=== PATIENT | female | born 1930 | race Caucasian/White ===

== ENCOUNTER 2019-07-12 22:54 | Inpatient (IN) | payer OTHER ==
[~2019-07-12] VITALS: Ht 162.6 cm; Wt 103.0 kg
--- NOTE | 2019-07-12 23:04 | NUR ---
PT BIBA TO ED WITH C/C OF RIGHT HAND PAIN. PER PT, RIGHT HAND BEGAN TO SWELL ON MONDAY, BUT PAIN AND SWELLING GREW WORSE TODAY. RIGHT HAND REDNESS AND SWELLING NOTED, WARM TO TOUCH. PT DENIES INJURY TO THE AFFECTED AREA. PT DENIES FEVER, CHILLS, N/V/D/C. PMSC INTACT TO AFFECTED EXTREMITY. PT IS AWAKE, AAOX4, RESP E/U, NAD NOTED. MSE COMPLETED BY DR. GAITAN. CALL LIGHT IN REACH.
[2019-07-12 23:47] LABS: BASOPHIL % 0.1 % (0-2)
[2019-07-12 23:50] LABS: PLATELET COUNT 408 x10^3mcL (130-400)
[2019-07-13 00:12] LABS: ALKALINE PHOSPHATASE 164 U/L (46-116); ALT/SGPT 21 U/L (14-59); AST/SGOT 21 U/L (15-37); CALCIUM 8.8 mg/dL (8.5-10.1); CARBON DIOXIDE 33.6 mmol/L (21-32); CHLORIDE SERUM 88 mmol/L (98-107); CREATININE SERUM 1.1 mg/dL (0.6-1.0); GLUCOSE SERUM 120 mg/dL (74-106); SODIUM SERUM 130 mmol/L (136-145); TOTAL PROTEIN, SERUM 7.1 g/dL (6.4-8.2)
--- NOTE | 2019-07-13 00:13 | NUR ---
PT IS LAYING IN GURNEY, AWAKE, AAOX4, RESP E/U, NAD NOTED. PT IS SPEAKING IN FULL CLEAR SENTENCES. CALL LIGHT IN REACH.
[2019-07-13 00:14] LABS: ALBUMIN 2.4 g/dL (3.4-5.0); POTASSIUM SERUM 2.3 mmol/L (3.5-5.1)
[2019-07-13] MEDS ORDERED: COR3 PO (01:01)
[2019-07-13] MEDS ORDERED: METFORMIN HYDR500 M1 PO (01:02)
[2019-07-13] MEDS ORDERED: KLOR-CON M1010 MEQ (01:03)
[2019-07-13] MEDS ORDERED: ZOLOFT25 MG PO (01:03)
[2019-07-13] MEDS ORDERED: MILLIPRED DP5 M1 PO (01:04)
[2019-07-13] MEDS ORDERED: COUMADIN3 MG PO (01:04)
[2019-07-13] MEDS ORDERED: COUMADIN3 MG (01:04)
[2019-07-13] MEDS ORDERED: SYNTHROID0.15 MG PO (01:05)
--- NOTE | 2019-07-13 01:24 | NUR ---
PT MEDICATED PER MD ORDER. PT VERBALIZED UNDERSTANDING OF MEDICATION PRIOR TO ADMINISTRATION. PT ON FULL SYSTEMS INTEGRATION ENGINEER. CALL LIGHT IN REACH. NAD NOTED.
--- NOTE | 2019-07-13 01:43 | NUR ---
REPORT CALLED TO DILIP CARRILLO TO ASSUME CARE OF PT.
[2019-07-13 02:30] LABS: microscopic required? YES; urine erythrocyte 1+ (NEGATIVE)
--- NOTE | 2019-07-13 02:45 | NUR ---
RECEIVED PT FROM ED VIA KATHRYN ACCOMPANIED BY RN. PT AA&O X4. NO SOB ON ROOM AIR. NO C/O PAIN. NO DISTRESS NOTED. IV TO RAC, INTACT. SAFETY MEASURES IN PLACE. BED IN LOWEST POSITION. SIDE RAILS UP X2. DEMONSTRATED HOW TO USE THE CALL LIGHT. CALL LIGHT WITHIN REACH.
[2019-07-13 03:06] LABS: AMPHETAMINE QUAL UR NONE DETECTED (See below)
[2019-07-13 04:38] VITALS: BP 120/68
[2019-07-13 05:34] VITALS: BP 117/66
--- NOTE | 2019-07-13 07:00 | NUR ---
PT RESTED AT INTERVALS. PT HAS EPISODES OF CONFUSION. MD AWARE. BREATHING EVEN AND UNLABORED ON ROOM AIR. IV TO RAC, PATENT AND INTACT. SAFETY MEASURES MAINTAINED. ALL NEEDS ATTENDED TO. CALL LIGHT WITHIN REACH. WILL ENDORSE CARE TO ONCOMING RN.
[2019-07-13 07:45] LABS: CARBON DIOXIDE 35.8 mmol/L (21-32); CHLORIDE SERUM 88 mmol/L (98-107); CREATININE SERUM 1.1 mg/dL (0.6-1.0); GLUCOSE SERUM 112 mg/dL (74-106); SODIUM SERUM 132 mmol/L (136-145)
--- NOTE | 2019-07-13 07:50 | NUR ---
RECEIVED PT IN BED. ASSESSED AND DOCUMENTED. DENIES ANY PAIN THIS TIME. STABLE. PT IS CONFUSED. MOVED PT FROM 223 TO 216 FOR CLOSER MONITOR. SAFTEY PRECAUTIONS ARE IN PLACE. WILL MONITOR.
[2019-07-13 08:13] LABS: POTASSIUM SERUM 2.7 mmol/L (3.5-5.1)
--- NOTE | 2019-07-13 08:40 | NUR ---
AWARE ABOUT K=2.7. HE SAID HE WILL ORDER MORE KCL.
[2019-07-13 08:47] LABS: BASOPHIL % 0.6 % (0-2)
[2019-07-13 08:50] LABS: PLATELET COUNT 439 x10^3mcL (130-400); RED CELL DISTRIBUTION WIDTH 15.9 % (11.5-14.5)
[2019-07-13 09:33] VITALS: BP 109/62
--- NOTE | 2019-07-13 12:00 | NUR ---
INFORMED ABOUT PT HAS ERYTHEMA TO ABD FOLDER, HIRO BREAST FOLDER, LEFT AXILLA AND PERINEAL AREA. INFORMED HIM ABOUT THE MOLES IN THE BODY AND SCABS TO LEFT ARM. REQUESTED FOR NYSTATIN POWDER.
--- NOTE | 2019-07-13 13:00 | NUR ---
PT SITTING UP IN THE CHAIR AND EATING LUNCH, STABLE. DENIES ANY PAIN. SENIOR DATA MINING ANALYST AT BEDSIDE. CLOSELY MONITERING THE PT. WILL MONITOR.
[2019-07-13 13:36] VITALS: BP 97/56
--- NOTE | 2019-07-13 15:00 | NUR ---
PT SAID SHE FEEL MILD SOB. SPO2 IS 98%. VISIBLY NO SOB NOTED. APPLIED O2 2L FOR PT COMFORT. STABLE.
--- NOTE | 2019-07-13 18:00 | NUR ---
PT SITTING UP IN THE BED. EATING DINNER. STABLE. BARREL DRAINER AT BEDSIDE. NO SOB NOTED.
[2019-07-13 18:27] VITALS: BP 101/52
[2019-07-13 18:28] LABS: CALCIUM 8.2 mg/dL (8.5-10.1); CARBON DIOXIDE 34.7 mmol/L (21-32); CHLORIDE SERUM 93 mmol/L (98-107); CREATININE SERUM 1.2 mg/dL (0.6-1.0); GLUCOSE SERUM 129 mg/dL (74-106); SODIUM SERUM 133 mmol/L (136-145)
[2019-07-13 18:29] LABS: POTASSIUM SERUM 2.8 mmol/L (3.5-5.1)
--- NOTE | 2019-07-13 19:25 | NUR ---
PT RESTING IN BED COMFORTABLY. DENIES ANY PAIN. STABLE. PUBLIC HEALTH MICROBIOLOGIST AT BEDSIDE FOR SAFTEY. GAVE REPORT TO COMPUTER INFORMATION SYSTEMS INSTRUCTOR NURSE.
--- NOTE | 2019-07-13 19:40 | NUR ---
RECEIVED PATIENT IN BED AWAKE AND ORIENTED WITH NO SIGN OF ACUTE DISTRESS. BREATHING EASY AND NONLABOR WITH CLEAR BS SATTING AT 97% RA. TELE#34 AFIB ON MONITOR. NO INDICATION OF CHEST DISCOMFORT NOTED. ABDOMEN ROUND AND NONTENDER WITH ACTIVE BS. IV TO RAC INTACT AND INFUSING WELL. WILL CONTINUE TO MONITOR. SITTER AT BEDSIDE.
[2019-07-13 20:41] VITALS: BP 106/65
--- NOTE | 2019-07-13 21:45 | NUR ---
C/O RIGHT HAND PAIN TYLENOL 650MG PO GIVEN PRESCRIBED. WILL CONTINUE TO MONITOR. SITTER AT BEDSIDE.
--- NOTE | 2019-07-13 23:22 | NUR ---
REPOSITIONED FOR COMFORT, RELIEF NOTED PER PATIENT AFTER TYLENOL PO WAS GIVEN.
--- NOTE | 2019-07-14 01:38 | NUR ---
AWAKE ACCO,APNIED TO BATHROOM AND VOIDED. REPOSITIONED FOR COMFORT.
--- NOTE | 2019-07-14 01:42 | NUR ---
AWAKE THIS TIME ASSISTED TO BATHROOM AND VOIDED. REPOSITIIONED FOR COMFORT.
--- NOTE | 2019-07-14 05:04 | NUR ---
REPOSITIONED FOR COMFORT. CHECKED AT INTERVALS FOR NEEDS AND SAFETY. HAD BM X1 SOFT IN MODEERATE AMOUNT. ALL NEEDS ATTENDED.
[2019-07-14 05:53] VITALS: BP 121/61
[2019-07-14 06:14] VITALS: BP 121/61
[2019-07-14 07:00] LABS: BASOPHIL % 0.3 % (0-2)
[2019-07-14 07:05] LABS: CALCIUM 8.4 mg/dL (8.5-10.1); CARBON DIOXIDE 32.1 mmol/L (21-32); CHLORIDE SERUM 94 mmol/L (98-107); CREATININE SERUM 1.2 mg/dL (0.6-1.0); GLUCOSE SERUM 116 mg/dL (74-106); MAGNESIUM 1.9 mg/dL (1.8-2.4); SODIUM SERUM 137 mmol/L (136-145)
[2019-07-14 07:13] LABS: PLATELET COUNT 402 x10^3mcL (130-400)
--- NOTE | 2019-07-14 07:30 | NUR ---
RECEIVED PT IN BED. ASSESSED AND DOCUMENTED. DENIES ANY PAIN THIS TIME. STABLE. NO SOB NOTED. SAFTEY PRECAUTIONS ARE IN PLACE. WILL MONITOR. STILL CONFUSED. ORIENTED X 1-2 WITH PERIOD OF CONFUSION. OVERHEAD CRANE TECHNICIAN AT BEDSIDE FOR SAFTEY. WILL MONITOR.
--- NOTE | 2019-07-14 07:35 | NUR ---
PT GOT UP TO USE THE RESTROOM, HAD BM, BLEEDING FROM THE RECTUM, PT SAID SHE HAS HEMMORHOIDS. ASSESS THE RECTAL AREA, FOUND HEMMORRHOIDS, INFORMED ABOUT THAT. ALSO INFORMED HIM ABOUT SMALL WOUND LOOK LIKE INCISION IN THE RT BUTTOCKS AREA, PHOTOGRAPH TAKEN.
[2019-07-14 07:57] LABS: POTASSIUM SERUM 2.5 mmol/L (3.5-5.1)
--- NOTE | 2019-07-14 08:00 | NUR ---
INFORMED ABOUT K=2.5. PT IS STABLE. AS400 PROGRAMMER AT BEDSIDE FOR MONITERING THE PT.
--- NOTE | 2019-07-14 09:30 | NUR ---
AND DID ROUNDS, REMINDED THEM AGAIN ABOUT PT'S HEMMORHOIDS AND WAS BLEEDING.
[2019-07-14 09:54] VITALS: BP 130/66
--- NOTE | 2019-07-14 10:00 | NUR ---
INFORMED ABOUT PT POSITIVE FOR MRSA. HE SAID HE WILL ORDER PROTOCOLE. PUT CONTACT ISO. PT IS STABLE.
--- NOTE | 2019-07-14 11:00 | NUR ---
CLEANED RT BUTTOCKS WOUND WITH NS AND APPLIED FOAM DRESSING. NO DRAINGE NOTED. NO FOUL SMELLING, WOUND LOOK LIKE INCISION. PT'S SON MENTIONED PT HAD MOLE REMOVED FROM THAT AREA. SAID NO NEED OF WOUND CULTURE.
[2019-07-14 12:14] VITALS: BP 124/77
--- NOTE | 2019-07-14 13:00 | NUR ---
ENCOURAGED PT TO EAT LUNCH BUT SHE REFUSED AND SHE WANT TO SLEEP. OFFERED BIPAP BUT PT REFUSED. WILL INFORM DOCTOR PT KEEP REFUSING MEAL.
[2019-07-14 16:23] LABS: CALCIUM 8.4 mg/dL (8.5-10.1); CARBON DIOXIDE 32.6 mmol/L (21-32); CHLORIDE SERUM 98 mmol/L (98-107); CREATININE SERUM 0.9 mg/dL (0.6-1.0); GLUCOSE SERUM 89 mg/dL (74-106); SODIUM SERUM 139 mmol/L (136-145)
[2019-07-14 16:34] LABS: POTASSIUM SERUM 2.8 mmol/L (3.5-5.1)
--- NOTE | 2019-07-14 17:00 | NUR ---
CHARGE NURSE INFORMED ABOUT PT WAS BLEEDING FROM HIS RECTUM, HEMMORROID. HE SAID TO HOLD TODAY'S COUMADIN DOSE AND HELD.
--- NOTE | 2019-07-14 17:00 | NUR ---
INFORMED ABOUT K=2.8 AND ALSO INFORMED PT REFUSING TO EAT ALL DAY AND PT MAKING SOME TWITCHING MOVEMENT TO HIS BODY WHEN SHE SLEEP. V/S ARE STABLE. HE SAID HE WILL COME AND SEE THE PT.
--- NOTE | 2019-07-14 17:50 | NUR ---
PT WOKE UP AND HAD 30% OF HER DINNER AND WENT BACK TO SLEEP. RECCOMENDED BIPAP MACHINE BUT PT REFUSED. SPO2 98% IN RA. NO SOB NOTED.
[2019-07-14 18:06] VITALS: BP 140/75
--- NOTE | 2019-07-14 19:02 | NUR ---
PT RESTING IN BED COMFORTABLY. STABLE. DENIES ANY PAIN. SLEEPING, NO SOB NOTED. INTERNET SALES CONSULTANT AT BEDSIDE FOR SAFTEY. GAVE REPORT TO DRAWBENCH OPERATOR NURSE.
--- NOTE | 2019-07-14 19:45 | NUR ---
RECEIVED PATIENT IN BED AWAKE WITH PERIOD OF CONFUSION , NO SIGN OF ACUTE RESPIRATORY DISTRESS NOTED . BREATHING EASY AND NONLABOR SATTING AT 99% ON O2 AT 2L VIA NC. TELE# 34 NSR ON MONITOR, DENIED CHEST DISCOMFORT. EDEMA TO RIGHT HAND NOTED ELEVATED WITH PILLOW. ABDOMEN ROUND, OBESE ANDNONTENDER WITH ACTIVE BS. IV TO RAC INTACT AND INFUSING WELL. WILL CONTINUE TO MONITOR. SITTER AT BEDSIDE.
[2019-07-14 20:46] VITALS: BP 127/68
--- NOTE | 2019-07-14 23:35 | NUR ---
RESPIRATORY THERAPIST AT BEDSIDE PLACED PATIENT ON BIPAP, PATIENT TOLERATED.
[2019-07-15 05:12] VITALS: BP 144/66
--- NOTE | 2019-07-15 05:17 | NUR ---
SLEPT FAIRLY, CHECKED AT INTERVALS FOR NEEDS AND SAFETY. ALL NEEDS ATTENDED. SITTER AT BEDSIDE.
[2019-07-15 06:31] LABS: BASOPHIL % 0.2 % (0-2)
[2019-07-15 06:51] LABS: PLATELET COUNT 463 x10^3mcL (130-400); RED CELL DISTRIBUTION WIDTH 16.2 % (11.5-14.5)
[2019-07-15 06:58] LABS: CALCIUM 8.9 mg/dL (8.5-10.1); CARBON DIOXIDE 31.4 mmol/L (21-32); CHLORIDE SERUM 98 mmol/L (98-107); GLUCOSE SERUM 90 mg/dL (74-106); MAGNESIUM 2.1 mg/dL (1.8-2.4); PHOSPHOROUS 2.7 mg/dL (2.5-4.9); POTASSIUM SERUM 3.5 mmol/L (3.5-5.1); SODIUM SERUM 140 mmol/L (136-145)
--- NOTE | 2019-07-15 07:30 | NUR ---
RECEIVED PT FROM ROAD DESIGN DRAFTSPERSON. SLEEPING THIS TIME, EASILY AROUSABLE. ASSESSED AND DOCUMENTED. DENIES PAIN THIS TIME. STABLE. OPHTHALMIC AIDE AT BEDSIDE FOR MONITERING PT AND SAFTEY. PT HAS PERIOD OF CONFUSION AND GET OUT OF BED WITH OUT CALLING ASSIST. SAFTEY PRECAUTIONS ARE IN PLACE. WILL MONITOR.
--- NOTE | 2019-07-15 10:00 | NUR ---
INFORMED YULIYA ABOUT PT C/O LEFT ELBOW PAIN AND TYLENOL PO WAS GIVEN. WILL REASSESS.
[2019-07-15 10:02] VITALS: BP 152/74
--- NOTE | 2019-07-15 10:40 | NUR ---
PT RESTING IN BED COMFORTABLY. STABLE. DENIES ANY PAIN THIS TIME.
--- NOTE | 2019-07-15 11:00 | NUR ---
INFORMED YULIYA ABOUT PT HAS SMALL WOUND TO SACROCOCCYGEAL AREA MEASURING 1X0.5X0.1. NO DRAINAGE NOTED, SURROUNDING AREA AROUND THE WOUND IS PINK. APPLIED Z-GAURDS AND FOAM DRESSING. REPOSITIONING Q2HR. PT IS STILL AMBULATING WITH WALKER. EDUCATED PT IMPORTANCE OF REPOSITIONING AND ACTIVITY.
--- NOTE | 2019-07-15 12:45 | NUR ---
PT IS EATING LUNCH, POOR APPETITE. ENCOURAGED PT TO EAT. STABLE.
[2019-07-15 13:00] VITALS: BP 106/61
[2019-07-15 16:30] VITALS: BP 121/71
--- NOTE | 2019-07-15 16:46 | NUR ---
PT. IS AAX3, NO OPEN ACTIVE WOUND, MAD TO SACRALCOCCYX AND INTERIGO TO UNDER BREASTS, UNDER ARMS AND ABDOMINAL FOLDS, REDNESS AND SKIN INTACT. WILL CONTINUE NYSTATINE ORDERED, PRIMARY RN NOTIFIED OF APPLY HYDRAGUARD TO MAD AND OPTIC FOAM, KEEP AREA DRY AND CLEAN.
--- NOTE | 2019-07-15 17:50 | NUR ---
PT RESTING IN BED COMFORTABLY. DENIES ANY PAIN. EATING DINNER. STABLE.
--- NOTE | 2019-07-15 19:02 | NUR ---
PT REMAINS STABLE, DENIES ANY PAIN. GAVE REPORT TO SUPERINTENDENT CONTAINER TERMINAL NURSE.
--- NOTE | 2019-07-15 19:35 | NUR ---
RECEIVED PT FROM DAY SHIFT RN. PT AAOX3. DENIES STARKEY/DIZZINESS. BREATHING EVEN AND UNLABORED ON RA WITH NO SOB NOTED. IV RAC PATENT, INFUSING WELL. TELE #34 AFIB ON MONITOR HR 110. PT DENIES CHEST PAIN/PRESSURE. NO SIGNS OF DISTRESS NOTED. FAMILY AT BEDSIDE. CONTACT ISOLATION. CALL BUTTON WITHIN REACH. SAFETY PRECAUTIONS IN PLACE. WILL CONTINUE TO MONITOR.
--- NOTE | 2019-07-15 19:58 | NUR ---
PT REQUESTING TYLENOL FOR LEFT KNEE PAIN. MEDICATED PER EMAR. CALL BUTTON WITHIN REACH. SAFETY PRECAUTIONS IN PLACE. WILL CONTINUE TO MONITOR.
[2019-07-15 21:15] VITALS: BP 94/48
[2019-07-16 05:41] VITALS: BP 108/64
--- NOTE | 2019-07-16 06:38 | NUR ---
PT SLEPT MOST OF THE NIGHT WITH NO SIGNS OF DISTRESS NOTED. IV PATENT, INFUSING WELL. PT DENIES ANY PAIN/DISCOMFORT. PT AMBULATORY WITH WALKER AND ASSIST. PT ABLE TO TURN AND REPOSITION. PT CONT TO HAVE RECTAL BLEEDING, MADE AWARE. PT MEDICATED PER EMAR. CALL BUTTON WITHIN REACH. SAFETY PRECAUTIONS IN PLACE. CONTACT ISOLATION. FIREPOT OPERATOR AND TENDER AT BEDSIDE TO ASSIST WITH CARE. WILL CONTINUE TO MONITOR AND ENDORSE CARE TO DAY SHIFT RN.
[2019-07-16 06:39] LABS: BASOPHIL % 0.3 % (0-2)
[2019-07-16 06:44] LABS: PLATELET COUNT 407 x10^3mcL (130-400); RED CELL DISTRIBUTION WIDTH 15.9 % (11.5-14.5)
[2019-07-16 07:30] LABS: CALCIUM 8.2 mg/dL (8.5-10.1); CARBON DIOXIDE 28.6 mmol/L (21-32); CHLORIDE SERUM 100 mmol/L (98-107); CREATININE SERUM 0.8 mg/dL (0.6-1.0); GLUCOSE SERUM 86 mg/dL (74-106); POTASSIUM SERUM 3.5 mmol/L (3.5-5.1); SODIUM SERUM 137 mmol/L (136-145)
[2019-07-16 07:35] VITALS: BP 122/74
--- NOTE | 2019-07-16 07:40 | NUR ---
PT RESTING. DENIES ANY PAIN. NO SIGNS OF DISTRESS. ENDORSED CARE TO DAY SHIFT RN, ALL QUESTIONS ADDRESSED.
--- NOTE | 2019-07-16 08:04 | NUR ---
RECEIVED PATIENT FROM DILIP GONZALES. PATIENT IN BED, NO COMPLAINTS AT THIS TIME. SPOKE WITH PATIENT ABOUT PLAN OF CARE FOR TODAY INCLUDING MEDICATIONS, PATIENT AGREES. WILL WAIT FOR SENIOR MARKETING DATA ANALYST BRY TO COME IN AND SPEAK WITH PATIENT. SENIOR MARKETING DATA ANALYST BRY AT NURSES STATION AT THIS TIME. CALL LIGHT IN REACH, SITTER AT BEDSIDE.
--- NOTE | 2019-07-16 09:49 | NUR ---
VICE PRESIDENT OF SOFTWARE DEVELOPMENT BRY IN TO SPEAK WITH PATIENT. PATIENT STATES SHE DOES NOT WANT TO RETURN TO HER PENITENTIARY. VICE PRESIDENT OF SOFTWARE DEVELOPMENT BRY WILL SPEAK WITH SHEEP STICKER TO POTENTIALLY ARRANGE FOR SNF. CHARGE NURSE JAYCEE MADE AWARE. CALL LIGHT IN REACH, SITTER AT BEDSIDE.
[2019-07-16] MEDS ORDERED: CLEOCIN HCL150 MG PO (10:30)
[2019-07-16 11:23] VITALS: BP 122/74
[2019-07-16] MEDS ORDERED: LEVOFLOXACIN500 M1 PO (11:36)
[2019-07-16 11:58] VITALS: BP 114/57
--- NOTE | 2019-07-16 12:23 | NUR ---
PATIENT OBSERVED WITH PHYSICAL THERAPIST SIMBA. ABLE TO STAND AT BEDSIDE AND SIDE STEP. PATIENT IN BED AT THIS TIME, COMPLAINTS OF MILD PAIN TO R HAND AND L KNEE. PATIENT STILL ON MRSA CONTACT ISOLATION, NO SIGNS OR SYMPTOMS PRESENT, NO RUNNY NOSE OR SNEEZING OBSERVED. PATIENT ALREADY AWARE OF MRSA COLONIZATION AND TREATMENT. CALL LIGHT IN REACH, SITTER AT BEDSIDE.
[2019-07-16 14:34] VITALS: Ht 162.6 cm; Wt 103.0 kg
--- NOTE | 2019-07-16 15:04 | NUR ---
JOSE MARTIN IN TO SPEAK WITH PATIENT ABOUT TRANSFER AND TRANSFER IS STILL SCHEDULED. METALIZER FIELD OPERATION ANIL AND CHILD PROTECTIVE INVESTIGATOR BRY SPOKE WITH PATIENT SON AND [id number] STILL AGREE FOR TRANSFER. CHARGE NURSE JAYCEE MADE AWARE. REPORT GIVEN TO [facility] TO LANE. WILL PREPARE PATIENT FOR TRANSFER TRANSPORT WILL BE AT 1600.
--- NOTE | 2019-07-16 16:05 | NUR ---
PREPARED PATIENT FOR TRANSFER. TRANSFER SIGNATURES OBTAINED. TELEMETRY RETURNED TO [facility]. IV CATHETER REMOVED AND INTACT. PATIENT BELONGINGS GATHERED. CHARGE NURSE JAYCEE NOW STATES THAT TRANSPORT HAS BEEN RESCHEDULED TO 1800 VIA [facility]. INFORMED PATIENT AND PATIENT MADE AWARE. CALL LIGHT IN REACH AT THIS TIME.
--- NOTE | 2019-07-16 17:05 | NUR ---
PATIENT IN BED AT THIS TIME. HAS MILD PAIN TO R HAND AND L KNEE. PATIENT STATES SHE DOES NOT NEED PAIN CONTROL AT THIS TIME. WILL CONTINUE TO WAIT FOR TRANSPORT TO [facility]. CALL LIGHT IN REACH, PATIENT ACROSS FROM NURSES STATION.
--- NOTE | 2019-07-16 18:28 | NUR ---
PATIENT SLEEPING AT THIS TIME. WILL ENDORSE TO ONCOMING NURSE, WAITING FOR [facility]SPORT TO ARRIVE TO TRANSFER PATIENT TO [facility]. PACKET PREPARED.
--- NOTE | 2019-07-16 18:53 | NUR ---
[facility] TRANSPORT CREW ARRIVED. PACKET GIVEN TO [facility] STAFF, PATIENT TRANSFERRED TO [facility], ESCORTED DOWNSTAIRS WITH BELONGINGS AND [facility] STAFF. TELEMETRY ALREADY REMOVED AND RETURNED, AND IV CATHETER REMOVED AND INTACT.
--- NOTE | 2019-07-17 08:11 | NUR ---
PHYSICAL THERAPY DAILY NOTES CO-SIGN All documentation done by the [facility] for 07/16/19 has been reviewed. I agree with the documentation. Reviewed/Co-Signed by: Selma Robert PT Documentation Done by:SIMBA KATE PTA
== END 2019-07-16 18:45 | DRG 871 ==
LOC: ED 22:54 → DU 07-13 00:44 → MU 07-13 01:31 → DU 07-13 02:23
PROVIDERS: Emergency Medicine; ADMIT General Practice
DX: A41.9 Sepsis, unspecified organism (principal); N17.0 Acute kidney failure with tubular necrosis; L03.113 Cellulitis of right upper limb; N39.0 Urinary tract infection, site not specified; E87.1 Hypo-osmolality and hyponatremia; I48.20 Chronic atrial fibrillation, unspecified; E86.0 Dehydration; E11.9 Type 2 diabetes mellitus without complications; B07.9 Viral wart, unspecified; M10.9 Gout, unspecified; E87.6 Hypokalemia; Z68.37 Body mass index [BMI] 37.0-37.9, adult; Z79.01 Long term (current) use of anticoagulants; Z79.84 Long term (current) use of oral hypoglycemic drugs
CPT/HCPCS: 82962; 97116-GP; 97530-GP; G0378; J2543; J3370; J3480; J7030; J7050; Q0092

== ENCOUNTER 2019-07-21 15:24 | Inpatient (IN) | payer OTHER ==
[~2019-07-21] VITALS: Ht 162.6 cm; Wt 106.2 kg
[~2019-07-21 15:24] MED LIST: CLEOCIN HCL150 MG PO; COR3 PO; COUMADIN3 MG; COUMADIN3 MG PO; KLOR-CON M1010 MEQ; LEVOFLOXACIN500 M1 PO; METFORMIN HYDR500 M1 PO; MILLIPRED DP5 M1 PO; SYNTHROID0.15 MG PO; ZOLOFT25 MG PO
[2019-07-21 16:21] LABS: BASOPHIL % 0.1 % (0-2)
[2019-07-21 16:28] LABS: PLATELET COUNT 494 x10^3mcL (130-400); RED CELL DISTRIBUTION WIDTH 16.4 % (11.5-14.5)
[2019-07-21 17:05] LABS: ALKALINE PHOSPHATASE 115 U/L (46-116); ALT/SGPT 27 U/L (14-59); AST/SGOT 27 U/L (15-37); BILIRUBIN TOTAL 0.34 mg/dL (0.20-1.00); CALCIUM 9.1 mg/dL (8.5-10.1); CHLORIDE SERUM 95 mmol/L (98-107); GLUCOSE SERUM 98 mg/dL (74-106); SODIUM SERUM 129 mmol/L (136-145); TOTAL PROTEIN, SERUM 6.9 g/dL (6.4-8.2)
[2019-07-21 17:11] LABS: ALBUMIN 1.7 g/dL (3.4-5.0); POTASSIUM SERUM 6.2 mmol/L (3.5-5.1)
[2019-07-21 20:47] LABS: microscopic required? NO
[2019-07-21 21:01] LABS: UA SPECIFIC GRAVITY >=1.030 (1.005-1.035); urine erythrocyte NEGATIVE (NEGATIVE)
[2019-07-21 22:16] VITALS: BP 105/52
[2019-07-21 22:25] VITALS: Ht 162.6 cm; Wt 106.2 kg
[2019-07-21 22:50] VITALS: BP 105/52
[2019-07-22 05:41] VITALS: BP 97/66
[2019-07-22 06:31] LABS: PLATELET COUNT 465 x10^3mcL (130-400); RED CELL DISTRIBUTION WIDTH 16.8 % (11.5-14.5)
[2019-07-22 06:49] LABS: CARBON DIOXIDE 23.8 mmol/L (21-32); CHLORIDE SERUM 95 mmol/L (98-107); GLUCOSE SERUM 108 mg/dL (74-106); MAGNESIUM 2.7 mg/dL (1.8-2.4); SODIUM SERUM 131 mmol/L (136-145)
[2019-07-22 07:48] LABS: POTASSIUM SERUM 6.5 mmol/L (3.5-5.1)
[2019-07-22 07:49] LABS: CREATININE SERUM 4.2 mg/dL (0.6-1.0)
[2019-07-22 07:50] LABS: PHOSPHOROUS 9.4 mg/dL (2.5-4.9)
[2019-07-22 08:55] VITALS: BP 135/103
[2019-07-22 12:05] VITALS: BP 82/55
[2019-07-22 15:27] LABS: BAND NEUTROPHIL 2 % (0-10); BASOPHIL 0 % (0-2); MONOCYTE 3 % (0-7); SEGMENTED NEUTROPHILS 88 % (37-75); rbc morphology (normal/abnorm) NORMAL (NORMAL)
[2019-07-22 17:48] VITALS: BP 95/53
[2019-07-22 22:29] VITALS: BP 85/52
[2019-07-23 06:53] VITALS: BP 78/43
[2019-07-23 08:57] VITALS: BP 123/103
[2019-07-23 13:18] VITALS: BP 65/40
[2019-07-23 16:15] VITALS: BP 72/27
[2019-07-23 22:07] VITALS: BP 56/24
== END 2019-07-24 02:41 | disposition expired | DRG 871 ==
LOC: ED 15:24 → DU 18:24
PROVIDERS: Emergency Medicine; ADMIT Internal Medicine
DX: A41.9 Sepsis, unspecified organism (principal); J69.0 Pneumonitis due to inhalation of food and vomit; J96.02 Acute respiratory failure with hypercapnia; I50.43 Acute on chronic combined systolic (congestive) and diastolic (congestive) heart failure; N17.0 Acute kidney failure with tubular necrosis; G92 Toxic encephalopathy; E43 Unspecified severe protein-calorie malnutrition; N39.0 Urinary tract infection, site not specified; I48.20 Chronic atrial fibrillation, unspecified; E87.2 Acidosis; E87.1 Hypo-osmolality and hyponatremia; Z68.41 Body mass index [BMI] 40.0-44.9, adult; E87.5 Hyperkalemia; B07.9 Viral wart, unspecified; G47.33 Obstructive sleep apnea (adult) (pediatric); E11.9 Type 2 diabetes mellitus without complications; M10.9 Gout, unspecified; M24.411 Recurrent dislocation, right shoulder; Z66 Do not resuscitate; Z79.01 Long term (current) use of anticoagulants; Z79.84 Long term (current) use of oral hypoglycemic drugs
CPT/HCPCS: 36600; 83880; G0378; J0610; J0696; J1450; J1815; J1940; J2270; J2543; J3430; J3490; J7040; J7620; Q0092